=== PATIENT | female | born 1960 ===

== ENCOUNTER 2025-08-24 06:15 | Day surgery (SDC) | payer MEDICARE, SELFPAY ==
[2025-08-24 07:30] LABS: Glucose - Point of Care 162 mg/dl (70-99)
== END 2025-08-24 08:37 | disposition home or self-care (01) ==
LOC: GI 06:15
PROVIDERS: ATTENDING PHYSICIAN Internal Medicine Gastroenterology
DX: Z12.11 Encounter for screening for malignant neoplasm of colon (principal); K64.8 Other hemorrhoids; D12.4 Benign neoplasm of descending colon
CPT/HCPCS: 45380; 82962; 88305